=== PATIENT | female | born 1990 | race Hispanic/Latino ===

== ENCOUNTER → 2024-07-22 | Outpatient (CLI) | payer OTHER ==
--- NOTE | 2024-07-22 11:37 | HMCIMG ---
US ABDOMINAL COMPLETE HISTORY: Acute abdominal pain COMPARISON: None TECHNIQUE: Multiple transverse and longitudinal ultrasound images of the abdomen were obtained. FINDINGS: Abdominal aorta and inferior vena cava are unremarkable. The visualized portion of the pancreas is within normal limits. Liver measures 15 cm. No gallstone is seen. Common duct measures 3 mm. No evidence of gallbladder wall thickening is seen. Both kidneys are seen. Right kidney measures 10.8 x 4.5 x 4.1 cm. Left kidney measures 10.1 x 4.6 x 4.5 cm. No hydronephrosis is seen of the both kidneys. The spleen is grossly unremarkable. IMPRESSION: 1. No gallstone or ductal dilatation is seen. 2. No hydronephrosis is seen.
== END | disposition home or self-care (01) ==
LOC: RAH 11:39
PROVIDERS: ATTEND Family Medicine
DX: R10.9 Unspecified abdominal pain (principal)
CPT/HCPCS: 76700

== ENCOUNTER 2025-03-02 12:31 | Emergency (ER) | payer OTHER ==
[~2025-03-02] VITALS: Ht 149.9 cm; Wt 75.4 kg
[2025-03-02] MEDS ORDERED: IOHEXOL-350 75 ML VIAL IV ONE (12:32)
--- NOTE | 2025-03-02 13:21 | ERN ---
ED Note History of Present Illness Stated Complaint: ABDOMINAL PAIN RUQ Chief Complaint: Abdominal Pain Time Seen by MD: 12:57 Time Seen by Midlevel: 13:05 Dictation: Ms. Logan is a 34-year-old female with history of obesity and gallstones who presented to the emergency department this afternoon for evaluation of abdominal pain. She states that last night at 1999 she developed right upper quadrant pain radiating to right shoulder blade/upper back. Today she states the symptoms worsened and pain so felt at umbilicus and is accompanied by nausea. She states that she has lower abdominal cramping type pain. She denies fever, chills, shortness of breath, cough, chest pain, palpitations, edema, vomiting, hematemesis, constipation, diarrhea, melena, hematochezia, flank pain, hematuria dysuria, headache, dizziness, or focal weakness/paresthesia Allergies: Coded Allergies: No Known Allergies (Unverified Allergy, Unknown, 03/02/25) Past Medical History Past Medical History: Gallstones Surgical History: Other, BTL PSYCH History: no pertinent psych hx Social History: Negative, Lives with family LMP: Feb 20, 2025 RN Note Reviewed/Agreed w/PFSH: Yes Review of System Dictation REVIEW OF SYSTEMS: CONSTITUTIONAL: Patient denies fevers, chills, sweats and weight changes. EYES: Patient denies any visual symptoms. EARS, NOSE, AND THROAT: No difficulties with hearing. No symptoms of rhinitis or sore throat. CARDIOVASCULAR: Patient denies chest pains, palpitations, orthopnea and paroxysmal nocturnal dyspnea. RESPIRATORY: No dyspnea on exertion, no wheezing or cough. GI: No vomiting, diarrhea, constipation, hematochezia or melena. Reports right upper quadrant abdominal pain radiating to the right shoulder blade. States has a history of gallstones. : No urinary hesitancy or dribbling. No nocturia or urinary frequency. No abnormal urethral discharge. Denies flank pain or hematuria MUSCULOSKELETAL: No myalgias or arthralgias. NEUROLOGIC: No chronic headaches, no seizures. Patient denies numbness, tingling or weakness. PSYCHIATRIC: Patient denies problems with mood disturbance. No problems with anxiety. ENDOCRINE: No excessive urination or excessive thirst. DERMATOLOGIC: Patient denies any rashes or skin changes. Initial Vital Sign VS Vital Signs Date Time Temp Pulse Resp B/P (MAP) Pulse Ox O2 Delivery O2 Flow Rate FiO2 03/02/25 12:32 98.1 74 20 137/90 99 Room Air 03/02/25 14:27 0 21 Physical Exam Dictation Vital signs: Reviewed. Afebrile. Constitutional: No acute distress. Non-toxic appearing. Head/Face: Normocephalic, atraumatic. Eyes: Periorbital areas with no swelling, redness, or edema. Lids and lashes are normal. Conjunctival injection is absent. Sclera anicteric. Pupils equal, round, reactive to light. ENT: Pinnas intact and no signs of trauma or erythema. Ear canals clear and no discharge. TMs no erythema. No nasal discharge or bleeding noted. Oropharynx with no exudate, redness, swelling, masses, exudates, or evidence of obstruction. Uvula midline. Mucous membranes moist. Neck: Trachea midline, no masses palpated, and no cervical lymphadenopathy. No swelling. Supple, full range of motion. Chest/Axilla: No tenderness, no crepitus, no paradoxical movement, no retractions. Cardiovascular: Regular rate, regular rhythm, no murmur, no gallops. Symmetric pulses. No peripheral edema. BP 137/90. Respiratory: Respirations even and unlabored. Lung sounds clear; no wheezes, rales or rhonchi. Room air SpO2 99% Gastrointestinal: Obese. Bowel sounds are normal. No mass or organomegaly . Tenderness diffusely; worse RUQ No rebound. No rigidity. No voluntary or involuntary guarding. No Mcdermott's sign. Neurological: Normal speech, gross motor function intact, gross sensory function intact. No focal weakness/Paresthesia. Musculoskeletal/Extremities: All extremities have full range of motion, no pain or tenderness on palpation. Symmetric pulses. Integumentary: Intact. Skin is normal color, warm and dry. Cap refill less than 3 seconds. Results (Laboratory/Radiology) Laboratory/Radiology Laboratory Tests Test 03/02/25 13:32 03/02/25 15:13 White Blood Count 6.3 K/uL (4.8-10.8) Red Blood Count 4.69 MIL/uL (4.00-5.50) Hemoglobin 12.6 g/dL (12.0-16.0) Hematocrit 39.7 % (36-48) Mean Corpuscular Volume 84.6 fL (79-99) Mean Corpuscular Hemoglobin 26.9 pg (27.0-33.0) L Mean Corpuscular Hemoglobin Concent 31.7 g/dL (32.0-36.0) L Red Cell Distribution Width 13.6 % (11.0-15.5) Platelet Count 181 K/uL (130-400) Mean Platelet Volume 13.0 fL (7.5-10.5) H Nucleated Red Blood Cells 0.0 % (0.0-0.19) Sodium Level 137 mmol/L (136-145) Potassium Level 3.5 mmol/L (3.5-5.1) Chloride Level 100 mmol/L (101-111) L Carbon Dioxide Level 28 mmol/L (21-32) Blood Urea Nitrogen 7 mg/dL (7-18) Creatinine 0.7 mg/dL (0.5-1.0) Glomerular Filtration Rate Calc 116 mL/min (>90) Random Glucose 95 mg/dL (70-105) Total Calcium 9.2 mg/dL (8.5-10.1) Total Bilirubin 0.5 mg/dL (0.2-1.0) Direct Bilirubin 0.1 mg/dL (0.0-0.3) Aspartate Amino Transf (AST/SGOT) 19 U/L (10-37) Alanine Aminotransferase (ALT/SGPT) 21 U/L (12-78) Alkaline Phosphatase 81 U/L (50-136) Total Protein 7.7 g/dL (6.0-8.3) Albumin 3.9 g/dL (3.5-5.0) Lipase 26 U/L (16-77) Urine Color LIGHT-YELLOW (YELLOW) Urine Appearance CLEAR (CLEAR) Urine pH 6.0 (5.0-8.0) Urine Specific [place] 1.015 (1.001-1.031) Urine Protein NEGATIVE mg/dL (NEGATIVE) Urine Glucose (UA) NEGATIVE mg/dL (NEGATIVE) Urine Ketones NEGATIVE mg/dL (NEGATIVE) Urine Occult Blood NEGATIVE (NEGATIVE) Urine Nitrate NEGATIVE (NEGATIVE) Urine Bilirubin NEGATIVE mg/dL (NEGATIVE) Urine Urobilinogen 0.2 mg/dL (0.2-1.0) Urine Leukocyte Esterase NEGATIVE Alcides/uL Urine HCG, Qualitative NEGATIVE (NEGATIVE) Labs Reviewed?: Yes Ultrasound Comment: Right upper quadrant ultrasound with no stones. Wall 2 mm, CBD 4 mm, no mention of pericholecystic fluid. ED Course ED Course Orders Procedure Category Date Status Time Us Abdominal Ruq\Ltd US 03/02/25 Resulted 13:19 Cbc Without LAB 03/02/25 Complete Differential 13:19 Basic Metabolic Panel LAB 03/02/25 Complete 13:19 Hepatic Function Panel LAB 03/02/25 Complete 13:19 Urinalysis Profile LAB 03/02/25 Complete 13:19 ,Urine Test LAB 03/02/25 Complete 13:19 Lipase LAB 03/02/25 Complete 13:19 Saline Lock Iv CPOE 03/02/25 Transmitted 13:19 0.9%Nacl 1000ml (Ns PHA 03/02/25 Complete 1000ml) 14:30 Ondansetron 4mg Inj PHA 03/02/25 Complete (Zofran 4mg Inj) 14:30 Hydromorphone 0.5mg PHA 03/02/25 Complete Syg (Dilaudid 0.5mg 14:30 Ct Abdomen/Pelvis CT 03/02/25 Resulted W/Contrast 14:12 Current Medications Medications (Trade) Dose Ordered Sig/Sharron Route PRN Reason Start Time Stop Time Status Last Admin Dose Admin Hydromorphone HCl (DiLAUDid 0.5MG INJ) 0.5 mg ONCE ONCE IVP 03/02/25 14:30 03/02/25 15:07 DC Ondansetron HCl (zoFRAN 4MG INJ) 4 mg ONCE ONCE IVP 03/02/25 14:30 03/02/25 15:07 DC 03/02/25 15:19 Sodium Chloride 1,000 ml @ 0 mls/hr ONCE ONCE IV 03/02/25 14:30 03/02/25 15:07 DC 03/02/25 15:18 Vital Signs Date Time Temp Pulse Resp B/P (MAP) Pulse Ox O2 Delivery O2 Flow Rate FiO2 03/02/25 16:22 98.2 65 18 122/66 100 Room Air* 0 21 03/02/25 14:27 99.5 75 18 134/92 98 Room Air* 0 21 03/02/25 12:32 98.1 74 20 137/90 99 Room Air Uneventful ED course. Vital signs remained stable; afebrile and normotensive with room air SpO2 100% right upper quadrant ultrasound negative for gallstones or pericholecystic fluid; no gallbladder wall thickening. CT scan of the abdomen/pelvis with IV contrast negative for acute pathology. Laboratory findings as noted below. No elevation of WBCs. H and H stable. No electrolyte derangement. No elevation of lipase. UA is clear. HCG negative. She declined dose Dilaudid for pain. While in ED she received doses Zofran, Toradol, and NS 1000ml IV as bolus. Medical Decision Making MDM MDM: Differential diagnosis: Pancreatitis, cholecystitis, UTI, appendicitis Rationale: Tests considered and ordered secondary to shared decision making include: Lab, RUQ ultrasound, CT scan Previous outside records reviewed: Old ER visits. Risk of complication and/or morbidity or mortality of patient management: None Medications-Per medication reconciliation Need for hospitalization: Patient does not meet criteria for hospitalization. Need for emergency major/minor surgery: No There are no social concerns with this patient. Prescription drug management: Levsin, ondansetron Prescriptions will include symptomatic care Patient's prior external medical records from other ER visits were reviewed by me as indicated. Prior testing and results from previous visits were reviewed. Prior tests were taken into account with medical decision making and resource utilization, independent historian/historians were used to obtain complete medical history. I independently interpreted the test that were performed, results were reviewed by me and considered findings on radiology if ordered. Medical management and examination interpretation discussions were had by me with other qualified healthcare professionals as indicated for the patient's care. DX & DISP Disposition: Discharge Departure Impression: Primary Impression: Nonspecific abdominal pain Additional Impression: Abdominal cramping Condition: Stable Scripts Hyoscyamine Sulfate (Levsin-Sl) 0.125 Mg Tab.subl 0.125 MG SL Q6HPRN for abdominal cramping/pain, #15 TAB.SL 0 Refills Prov: ALONDRA KERNS [facility] 03/02/25 Ondansetron (Ondansetron Odt) 4 Mg Tab.rapdis 4 MG PO Q6HPRN PRN for nausea, #15 TAB 0 Refills Prov: ALONDRA KERNS [facility] 03/02/25 Additional Instructions: Today's evaluation included a urinalysis, blood work, right upper quadrant ultrasound and CT scan of the abdomen and pelvis, all which were normal. There was no evidence of gallbladder disease, kidney infection, kidney stones, pancreatitis, appendicitis, obstruction or other acute surgical problems. Your symptoms are likely due to intestinal spasms, irritation of the gastrointestinal tract, or a temporary functional issue. You are safe to go home at this time. Take Zofran ODT as needed for nausea. Levsin 0.125 mg sublingual every 6-8 hours as needed for abdominal cramping/spasms/pain. Rest and avoid heavy meals today. Eat small, bland meals until symptoms improve (toast, rice, bananas, soup). Avoid large amounts of dairy, spicy foods, greasy foods, and caffeine until you are feeling better. Increase fluids such as water, broth, and electrolyte drinks. A heating pad to the abdomen may help with cramping. Cramping may continue on and off for the next 24-48 hours. Medication should help ease the discomfort. If symptoms worsen or new symptoms develop, return for re-evaluation. Follow up with your primary care provider in the next 2-3 days for recheck; especially if pain persists, recurs, or worsens. Return to the ER immediately if you develop: Severe/worsening abdominal pain, persistent vomiting/inability to keep fluids down, fever/chills, yellowing of the skin or eyes, bloody/black stools, chest pain/shortness of breath, fainting/weakness, or dizziness, inability to urinate or severe back pain. Referrals: BLAKE HINES M.D. (PCP) Time of Disposition: 17:56 ALONDRA KERNS Mar 02, 2025 13:21
[2025-03-02 13:59] LABS: NUCLEATED RED BLOOD CELLS 0.0 % (0.0-0.19); PLATELET COUNT (AUTO) 181.0 K/uL (130-400); RED BLOOD CELL COUNT(AUTO) 4.69 MIL/uL (4.00-5.50); RED CELL DISTRIBUTION WIDTH 13.6 % (11.0-15.5); WHITE BLOOD COUNT (AUTO) 6.3 K/uL (4.8-10.8)
[2025-03-02 14:10] LABS: CREATININE 0.7 mg/dL (0.5-1.0); GLOMERULAR FILTR. RATE CALC 116.0 mL/min (>90); GLUCOSE,RANDOM 95.0 mg/dL (70-105); SODIUM SERUM 137.0 mmol/L (136-145); UREA NITROGEN, BLOOD 7.0 mg/dL (7-18)
[2025-03-02 14:12] LABS: ASPARTATE AMINOTRANSFERASE 19.0 U/L (10-37); TOTAL PROTEIN, SERUM 7.7 g/dL (6.0-8.3)
[2025-03-02] MEDS: 0.9%NACL 1000ML 1,000 ML IV ONE (15:18)
--- NOTE | 2025-03-02 15:21 | HMCIMG ---
EXAM: US Abdomen, Right Upper Quadrant. CLINICAL HISTORY: RUQ pain, Hx gallstones TECHNIQUE: Right upper quadrant sonography performed with image documentation. COMPARISON: None provided. FINDINGS: LIVER: Within normal limits in size(15 cm) and echogenicity. No mass. GALLBLADDER: The gallbladder appears normal. No gallbladder wall thickening seen. No gallstones are evident. The gallbladder wall measures 2 mm. COMMON BILE DUCT: Within normal limits in size, measuring 4 mm. PANCREAS: The pancreas appears within normal limits. RIGHT KIDNEY: The right kidney measures 9.4 x 4 x 4.4 cm. No renal mass or calculus. No hydronephrosis. IMPRESSION: 1. No acute intraabdominal pathology. /Antonio
[2025-03-02 15:33] LABS: APPEARANCE,URINE CLEAR (CLEAR); GLUCOSE, URINE (UA) NEGATIVE (NEGATIVE); LEUKOCYTE ESTERASE ,URINE NEGATIVE Leu/uL (NEGATIVE); NITRATE,URINE NEGATIVE (NEGATIVE); OCCULT BLOOD,URINE NEGATIVE (NEGATIVE)
[2025-03-02 15:35] LABS: HCG,QUALITATIVE URINE NEGATIVE (NEGATIVE)
[2025-03-02 15:36] LABS: ADD UA MICROSCOPIC NO
[2025-03-02 18:05] VITALS: BP 120/70; PULSE 62; RESP 18; TEMP 98.3; O2SAT 100
--- NOTE | 2025-03-02 18:10 | NUR ---
PT RECEIVED HER DISCHARGE PAPERWORK AND EXCUSE. HER MEDICATIONS WERE SENT TO HER PHARMACY. IV TORADOL GIVEN ORDERED, NO ADVERSE EFFECTS AT THIS TIME. SHE AMBULATED TO DISCHARGE WITH A STEADY GAIT.
--- NOTE | 2025-03-03 15:52 | HMCIMG ---
EXAM: CT Abdomen and Pelvis with IV contrast CLINICAL HISTORY: abd pain diffuse; worse RUQ and over epigastrium TECHNIQUE: Axial computed tomography images of the abdomen and pelvis with intravenous contrast. CONTRAST: with intravenous contrast. COMPARISON: None provided. FINDINGS: LUNG BASES: The lung bases appear clear. No pleural effusions are seen. LIVER: Unremarkable. GALLBLADDER AND BILE DUCTS: The gallbladder appears within normal limits. No radioopaque gallstones are seen. No biliary ductal dilatation is evident. PANCREAS: Unremarkable. SPLEEN: Unremarkable. ADRENAL GLANDS: Unremarkable. KIDNEYS, URETERS, AND BLADDER: The kidneys appear within normal limits. There is no hydronephrosis or hydroureter. No urinary calculi are seen. STOMACH AND BOWEL: Unremarkable appearance of the stomach and bowel. No evidence of bowel obstruction. No evidence suggesting enteritis or colitis. APPENDIX: The appendix is not seen. There is no focal inflammatory change in the right lower quadrant. PERITONEUM: No free fluid. No free air. LYMPH NODES: No lymphadenopathy is evident. REPRODUCTIVE: Unremarkable as visualized. VASCULATURE: No evidence of abdominal aortic aneurysm. BONES: No aggressive appearing osseous lesion. No acute osseous pathology evident. IMPRESSION: No acute intra-abdominal or pelvic abnormality. /[place]
== END 2025-03-02 18:10 | disposition home or self-care (01) ==
LOC: EDH 12:31
DX: R10.11 Right upper quadrant pain (principal); R11.0 Nausea; R10.30 Lower abdominal pain, unspecified; E66.9 Obesity, unspecified; Z68.30 Body mass index [BMI] 30.0-30.9, adult
CPT/HCPCS: 99285; 74177; 96374; 76705; 96361; 96375; 80076; 80048; 83690; 85027; 81003; 81025; 36415; J1885; J7030; J2405; Q9967; J1171